=== PATIENT | male | born 1970 | race Caucasian/White ===

== ENCOUNTER 2019-06-27 22:19 | Emergency (ER) | payer OTHER ==
[2019-06-27 22:23] VITALS: TEMP 97.5
[2019-06-27] MEDS ORDERED: ONDANSETRON 4 MG/2 ML VIAL IVP STA (22:39)
[2019-06-27] MEDS ORDERED: SODIUM CHLORIDE 0.9% 500 ML 500 ML IV ONE (22:39)
[2019-06-27] MEDS ORDERED: KETOROLAC 30 MG/ML 1 ML VIAL IVP STA (22:39)
[2019-06-27] MEDS ORDERED: SODIUM CHLORIDE 0.9% 1,000 ML IV SCH (22:45)
--- NOTE | 2019-06-27 22:47 | ED ---
Abdominal Pain HPI - General Chief Complaint: Abdominal Pain Stated Complaint: Kidney Stone Time Seen by Provider: 06/27/19 22:29 Source: patient Mode of arrival: ambulatory Limitations: no limitations - History of Present Illness Initial Comments: 48-year-old male history of hypertension and kidney stones presenting today for chief complaint of right flank pain that radiates her Cipro crit a dull sensation in the right testicle. Patient denies any pain directly in the testicle. He states it feels like it is referred pain he states this is happening recent kidney stones in the past. Patient denies dysuria urgency frequency or obvious hematuria. Patient states the right flank pain is identical twins had a stone in the past. Patient states that the pain began suddenly this evening he states he cannot take a longer than presents emergency department for further evaluation. Patient denies any chest pain shortness of breath anterior abdominal pain diarrhea or vomiting. Patient denies melena hematochezia. Patient denies any other complaints including denial of any fevers. Remaining of recent negative upon arrival patient appears well signs of toxicity however appears to be uncomfortable - Related Data Previous Rx's Medication Instructions Recorded Ketorolac [Toradol] 10 mg PO Q6HR PRN #15 tab 02/28/14 Tamsulosin HCl [Flomax] 0.4 mg PO DAILY #7 cap 02/28/14 Ketorolac [Toradol] 10 mg PO Q6HR PRN 2 Days #8 tab 06/28/19 Tamsulosin [Flomax] 0.4 mg PO DAILY 7 Days #7 cap 06/28/19 Allergies Allergy/AdvReac Type Severity Reaction Status Date / Time Penicillins Allergy Rash/Hives Verified 06/27/19 22:23 Review of Systems ROS Statement: Those systems with pertinent positive or pertinent negative responses have been documented in the HPI. ROS Other: All systems not noted in ROS Statement are negative. Past Medical History Past Medical History: Hypertension, Thyroid Disorder Additional Past Medical History / Comment(s): kidney stones, History of Any Multi-Drug Resistant Organisms: MRSA Date of last positivie culture/infection: 2012 MDRO Source:: face and abd Past Surgical History: No Surgical Hx Reported Past Psychological History: No Psychological Hx Reported Smoking Status: Never smoker Past Alcohol Use History: Occasional Past Drug Use History: None Reported General Exam - General Exam Comments Initial Comments: General: The patient is awake and alert, in no distress Eye: +3 mm pupils are equal, round and reactive to light, extra-ocular movements are intact. No nystagmus. There is normal conjunctiva bilaterally. No signs of icterus. Ears, nose, mouth and throat: There are moist mucous membranes and no oral lesions. Neck: The neck is supple, there is no tenderness or JVD. Cardiovascular: There is a regular rate and rhythm. No murmur, rub or gallop is appreciated. Respiratory: Lungs are clear to auscultation, respirations are non-labored, breath sounds are equal. No wheezes, stridor, rales, or rhonchi. Gastrointestinal: Soft, non-distended, non-tender abdomen without masses or organomegaly noted. There is no rebound or guarding present Musculoskeletal: Normal ROM, no tenderness. Strength 5/5. Sensation intact. Radial pulses equal bilaterally 2+. Neurological: A&O x 3. CN II-XII intact grossly, There are no obvious motor or sensory deficits. Coordination appears grossly intact. Speech is normal. Skin: Skin is warm and dry and no rashes or lesions are noted. Psychiatric: Cooperative, appropriate mood & affect, normal judgment. Limitations: no limitations Course Vital Signs 06/27/19 06/28/19 22:21 00:23 Temperature 97.5 F L Pulse Rate 79 85 Respiratory 17 18 Rate Blood Pressure 162/88 139/88 O2 Sat by Pulse 99 99 Oximetry Medical Decision Making - Medical Decision Making 48yo hx of stones, with right flank pain x few hours. Concern for stone. CT revealed possible recently passed or nonradiopaque stone. Patient UA reveals no significant signs of infection. Patient symptoms controlled with one dose of IV toradol. Patient given outpatient RX for flomax and toradol. Recommend urology f/u. Return parameters discussed and patient was discharged appearing well. Discussed case with attending Dr. haines - Lab Data Result diagrams: 06/27/19 23:14 06/27/19 23:14 Lab Results 06/27/19 06/27/19 06/27/19 Range/Units 23:14 23:14 23:14 WBC 9.5 (3.8-10.6) k/uL RBC 4.95 (4.30-5.90) m/uL Hgb 14.8 (13.0-17.5) gm/dL Hct 43.2 (39.0-53.0) % MCV 87.1 (80.0-100.0) fL MCH 29.9 (25.0-35.0) pg MCHC 34.3 (31.0-37.0) g/dL RDW 13.0 (11.5-15.5) % Plt Count 254 (150-450) k/uL Neutrophils % 65 % Lymphocytes % 27 % Monocytes % 5 % Eosinophils % 1 % Basophils % 1 % Neutrophils # 6.2 (1.3-7.7) k/uL Lymphocytes # 2.5 (1.0-4.8) k/uL Monocytes # 0.4 (0-1.0) k/uL Eosinophils # 0.1 (0-0.7) k/uL Basophils # 0.1 (0-0.2) k/uL Sodium 139 (137-145) mmol/L Potassium 4.0 (3.5-5.1) mmol/L Chloride 104 (98-107) mmol/L Carbon Dioxide 26 (22-30) mmol/L Anion Gap 9 mmol/L BUN 12 (9-20) mg/dL Creatinine 1.07 (0.66-1.25) mg/dL Est GFR (CKD-EPI)AfAm >90 (>60 ml/min/1.73 sqM) Est GFR (CKD-EPI)NonAf 82 (>60 ml/min/1.73 sqM) Glucose 98 (74-99) mg/dL Calcium 9.5 (8.4-10.2) mg/dL Total Bilirubin 0.3 (0.2-1.3) mg/dL AST 31 (17-59) U/L ALT 34 (4-49) U/L Alkaline Phosphatase 44 (38-126) U/L Total Protein 7.5 (6.3-8.2) g/dL Albumin 4.8 (3.5-5.0) g/dL Urine Color Yellow Urine Appearance Cloudy (Clear) Urine pH 7.5 (5.0-8.0) Ur Specific [place] 1.018 (1.001-1.035) Urine Protein Trace H (Negative) Urine Glucose (UA) Negative (Negative) Urine Ketones Negative (Negative) Urine Blood Negative (Negative) Urine Nitrite Negative (Negative) Urine Bilirubin Negative (Negative) Urine Urobilinogen <2.0 (<2.0) mg/dL Ur Leukocyte Esterase Negative (Negative) Amorphous Sediment Few H (None) /hpf Disposition Clinical Impression: Right flank pain Disposition: HOME SELF-CARE Condition: Good Instructions (If sedation given, give patient instructions): Kidney Stones (ED) Additional Instructions: Please use medication as discussed. Please follow-up with family doctor in the next 2 days. Please return to emergency room if the symptoms increase or worsen or for any other concerns. Prescriptions: Ketorolac [Toradol] 10 mg PO Q6HR PRN 2 Days #8 tab PRN Reason: Pain Is patient prescribed a controlled substance at d/c from ED?: No Referrals: Yuliya Bateman MD [Primary Care Provider] - 1-2 days Time of Disposition: 00:30
--- NOTE | 2019-06-27 23:15 | CT ---
EXAMINATION TYPE: CT abdomen pelvis wo con DATE OF EXAM: 06/27/2019 COMPARISON: None HISTORY: right flank pain CT DLP: 1157 mGycm Automated exposure control for dose reduction was used. Lung bases are clear of consolidation. There is no pleural effusion. Heart size is normal. There is n o pericardial effusion. Liver spleen pancreas gallbladder stomach appear intact. Bile ducts are not dilated. There is no adrenal mass. Kidneys have normal size. There are apparent bilateral renal parapelvic cys ts. There is mild ectasia of the right renal pelvis. Right ureter is mildly ectatic. I see no uretera l calculus. Left ureter is not dilated. There is no retroperitoneal adenopathy. There is no ascites o r free air. Bladder distends smoothly. There is no inguinal hernia. There is no free fluid in the pel vis. Appendix is posterior and medial and appears normal. There is no mesenteric edema. There is no ascite s or free air. There is no sign of a bowel obstruction. There are few prostatic calcifications. There are a few scattered sigmoid diverticula without sign of diverticulitis. Lumbar vertebra have fairly normal alignment. 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 There is no compression fracture. The bony pelvis is intact. IMPRESSION: Renal parapelvic cysts. Mild ectasia of the right upper collecting system that could relate to nonopa que stone or recently passed stone.
[2019-06-27 23:23] LABS: Basophils # (A) 0.1 k/uL (0-0.2); Basophils % (A) 1 %; Eosinophils # (A) 0.1 k/uL (0-0.7); Eosinophils % (A) 1 %; HCT 43.2 % (39.0-53.0); HGB 14.8 gm/dL (13.0-17.5); Lymphocytes # (A) 2.5 k/uL (1.0-4.8); Lymphocytes % (A) 27 %; MCH 29.9 pg (25.0-35.0); MCHC 34.3 g/dL (31.0-37.0); MCV 87.1 fL (80.0-100.0); Mean Platelet Volume 7.9; Monocytes # (A) 0.4 k/uL (0-1.0); Monocytes % (A) 5 %; Neutrophils # (A) 6.2 k/uL (1.3-7.7); Neutrophils % (A) 65 %; Platelet Count 254 k/uL (150-450); RBC 4.95 m/uL (4.30-5.90); WBC 9.5 k/uL (3.8-10.6)
[2019-06-27 23:32] LABS: ALT 34 U/L (4-49); AST 31 U/L (17-59); African American GFR (CKD) >90 (>60 ml/min/1.73 sqM); Albumin 4.8 g/dL (3.5-5.0); Alkaline Phosphatase 44 U/L (38-126); Anion Gap 9 mmol/L; Blood Urea Nitrogen 12 mg/dL (9-20); Calcium 9.5 mg/dL (8.4-10.2); Carbon Dioxide 26 mmol/L (22-30); Chloride 104 mmol/L (98-107); Glucose 98 mg/dL (74-99); Non-African American GFR(CKD) 82 (>60 ml/min/1.73 sqM); Sodium 139 mmol/L (137-145); Total Bilirubin 0.3 mg/dL (0.2-1.3); Total Protein 7.5 g/dL (6.3-8.2)
[2019-06-27 23:40] LABS: Amorphous Sediment,Urine Few /hpf; Appearance,Urine Cloudy (Clear); Bilirubin,Urine Negative (Negative); Blood,Urine Negative (Negative); Color,Urine Yellow; Glucose,Urine (UA) Negative (Negative); Ketones,Urine Negative (Negative); Leukocyte Esterase,Urine Negative (Negative); Nitrite,Urine Negative (Negative); PH, Urine 7.5 (5.0-8.0); Protein,Urine Trace (Negative); Specific Gravity,Urine 1.018 (1.001-1.035); Urobilinogen,Urine <2.0 mg/dL (<2.0)
[2019-06-28 00:25] VITALS: BP 139/88; PULSE 85; RESP 18
== END 2019-06-28 00:53 | disposition home or self-care (01) ==
LOC: EC 22:19
DX: R10.9 Unspecified abdominal pain (principal); I10 Essential (primary) hypertension; Z88.0 Allergy status to penicillin; Z87.442 Personal history of urinary calculi
CPT/HCPCS: 99284; 96374; 96375; 36415; 80053; 85025; 81001; 74176; J2405; J1885